=== PATIENT | male | born 1980 | race Hispanic/Latino ===

== ENCOUNTER → 2017-10-04 | Outpatient (CLI) | payer OTHER ==
[~2017-10-04] MED LIST: AMOXICILLIN875 MG PO; DIATRIZOATE MEGL/DIATRIZOA SOD 30 ML BTL PO ONE; IOPAMIDOL 370 MG/ML 200 ML INFUS..BTL INJ ONE; LISINOPRIL PO; SODIUM CHLORIDE 0.9% 50ML 50 ML ONE; TOPIRAMATE PO; VITAMIN D5000 UNIT PO
[2017-10-04 08:26] LABS: BLOOD UREA NITROGEN 12 mg/dL (7-26); BUN/CREATININE RATIO 13 (6-25); CREATININE, SERUM 0.92 mg/dL (0.72-1.25); EST GLOMERULAR FILTRATION RATE > 60 ML/MIN (60-)
--- NOTE | 2017-10-04 09:21 | Diagnostic Imaging Report ---
EXAM: CT ABDOMEN AND PELVIS with IV CONTRAST DATE: 10/04/2017 8:35 AM INDICATION: Ventral hernia COMPARISON: None TECHNIQUE: The abdomen and pelvis were scanned using a multidetector helical scanner. Coronal and sagittal reformations were obtained. Routine protocol performed. IV Contrast: 100 cc of Isovue-370 Oral Contrast: Gastrografin intermixed with water Radiation Dose: Total DLP 877.74 mGy*cm Estimated effective dose: DLP x 0.015 x size factor FINDINGS: LOWER THORAX: No consolidations LIVER: No masses BILIARY: The gallbladder is unremarkable. No ductal dilatation. SPLEEN: No masses PANCREAS: No masses ADRENALS: There is a tiny fat-containing left adrenal nodule measuring 7 mm compatible with a myelolipoma. KIDNEYS: Symmetric perfusion. No enhancing masses. No hydronephrosis. GI TRACT: No distention, wall thickening or evidence of obstruction. The appendix is normal. 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 PERITONEUM/RETROPERITONEUM: No free air or fluid LYMPH NODES: No lymphadenopathy REPRODUCTIVE ORGANS: Unremarkable BLADDER: Unremarkable SOFT TISSUES: There is a small supraumbilical ventral abdominal wall hernia measuring 2.3 x 1.6 x 1.6 cm. No inflammation or GI contents within the fat-containing hernia. Small fat-containing umbilical hernia. BONES: No suspicious bone lesions. IMPRESSION: 1. Small supraumbilical ventral abdominal hernia. 2. Benign-appearing fat-containing left adrenal nodule. Signed by: Dr. Mauricio Kumar DO on 10/04/2017 9:18 AM
== END ==
LOC: CT 07:11
PROVIDERS: ATTEND Surgery
DX: K43.9 Ventral hernia without obstruction or gangrene (principal)
CPT/HCPCS: 36415; 74177; 82565; 84520; Q9967

== ENCOUNTER 2017-10-13 09:12 | Observation (INO) | payer OTHER ==
[2017-10-12 12:40] LABS: BASOPHILS # (AUTO) 0.1 (0.0-0.1); BASOPHILS % 0.4 % (0.0-1.0); EOSINOPHILS # (AUTO) 0.3 (0.0-0.4); EOSINOPHILS % 2.5 % (0.0-6.0); HEMATOCRIT 44.8 % (38.2-49.6); HEMOGLOBIN 15.8 g/dL (14.0-18.0); LYMPHOCYTES # (AUTO) 3.6 (1.0-3.2); LYMPHOCYTES % 30.8 % (18.0-39.1); MEAN CORPUSCULAR HEMOGLOBIN 31.8 pg (28-32); MEAN CORPUSCULAR HGB CONC 35.3 g/dL (31-35); MEAN CORPUSCULAR VOLUME 90.1 fL (81-99); MONOCYTES # (AUTO) 0.7 (0.2-0.8); MONOCYTES % 6.3 % (4.4-11.3); NEUTROPHILS % 59.5 % (38.7-80.0); PLATELET COUNT 325 x10e3/uL (140-360); RED BLOOD COUNT 4.97 x10e6/uL (4.3-5.7); RED CELL DISTRIBUTION WIDTH 12.4 % (11.7-14.4)
[2017-10-12 12:58] LABS: ANION GAP 12.7 mmol/L (8-16); BLOOD UREA NITROGEN 10 mg/dL (7-26); BUN/CREATININE RATIO 12 (6-25); CALCIUM 9.3 mg/dL (8.4-10.2); CARBON DIOXIDE 25 mmol/L (22-29); CHLORIDE 103 mmol/L (98-107); CREATININE, SERUM 0.84 mg/dL (0.72-1.25); EST GLOMERULAR FILTRATION RATE > 60 ML/MIN (60-); GLUCOSE 145 mg/dL (74-118); POTASSIUM 3.7 mmol/L (3.5-5.1); SODIUM 137 mmol/L (136-145)
[~2017-10-13] VITALS: Ht 172.7 cm; Wt 105.0 kg
[2017-10-13] MEDS: DEXTROSE 5%/LACTATED RINGERS 1,000 ML IV SCH (00:30)
[~2017-10-13 09:12] MED LIST changes: -DIATRIZOATE MEGL/DIATRIZOA SOD 30 ML BTL PO ONE; -IOPAMIDOL 370 MG/ML 200 ML INFUS..BTL INJ ONE; -SODIUM CHLORIDE 0.9% 50ML 50 ML ONE
[2017-10-13] MEDS ORDERED: HYDROCHLOROTHIA25 MG PO (09:20)
[2017-10-13] MEDS ORDERED: BACITRACIN 50,000 UNIT VIAL ONE (14:45)
[2017-10-13] MEDS ORDERED: CEFAZOLIN SOD 1 GM VIAL ONE (15:02)
[2017-10-13] MEDS ORDERED: PROPOFOL IV EMULSION 10 MG/ML 20 ML VIAL ONE (15:02)
[2017-10-13] MEDS ORDERED: DESFLURANE 240 ML BTL INH ONE (15:02)
[2017-10-13] MEDS ORDERED: LABETALOL HCL IV 5 MG/ML 20ML MDV ONE (15:02)
[2017-10-13] MEDS ORDERED: LIDOCAINE HCL 2% LOCAL INJ 5 ML SDV VIAL INJ ONE (15:02)
[2017-10-13] MEDS ORDERED: DEXAMETHASONE SOD PHOS INJ 4 MG/ML VIAL ONE (15:02)
[2017-10-13] MEDS ORDERED: ONDANSETRON HCL INJ 2 MG/ML VIAL ONE ×2 (15:02→16:53)
[2017-10-13] MEDS ORDERED: ROCURONIUM BROMIDE 10 MG/ML 5ML VIAL ONE (15:02)
[2017-10-13] MEDS ORDERED: LIDOCAINE 1% W/EPINEPHRINE 20 ML VIAL ONE (15:33)
[2017-10-13] MEDS ORDERED: NEOSTIGMINE 1 MG/ML 10ML VIAL ONE (15:59)
[2017-10-13] MEDS ORDERED: PROMETHAZINE HCL (IM) 25 MG/ML VIAL IV PRN (16:15)
[2017-10-13] MEDS ORDERED: METOCLOPRAMIDE HCL 10 MG/2ML VIAL ONE (16:53)
[2017-10-13] MEDS ORDERED: PROMETHAZINE HCL (IM) 25 MG/ML VIAL ONE (17:19)
[2017-10-13 17:30] VITALS: BP 123/76
[2017-10-13] MEDS: CEFAZOLIN SOD 1 GM VIAL IV SCH (17:40)
[2017-10-13 17:54] VITALS: BP 123/76
[2017-10-13] MEDS ORDERED: CEFAZOLIN SOD 1 GM/NS 50ML 50 ML IV SCH (18:00)
[2017-10-13 18:09] VITALS: BP 123/76
[2017-10-13] MEDS ORDERED: MIDAZOLAM HCL 2 MG/2 ML VIAL ONE (18:39)
[2017-10-13] MEDS ORDERED: MORPHINE SULFATE INJ 10 MG/ML ONE (18:39)
[2017-10-13] MEDS ORDERED: FENTANYL CITRATE/PF 100MCG/2 ML INJ ONE (18:39)
[2017-10-13 20:00] VITALS: BP_SYST 135; BP_SYST 164; BP_DIAS 69; BP_DIAS 83
[2017-10-13] MEDS: HYDROMORPHONE 2MG/ML INJ IV PRN (22:16)
[2017-10-14] VITALS (7 sets, daily range): BP systolic 106–122; BP diastolic 57–72
[2017-10-14] MEDS: CEFAZOLIN SOD 1 GM VIAL IV SCH ×4 (00:30→17:20)
[2017-10-14] MEDS: DEXTROSE 5%/LACTATED RINGERS 1,000 ML IV SCH ×3 (02:10→22:33)
[2017-10-14] MEDS: HYDROMORPHONE 2MG/ML INJ IV PRN ×4 (04:30→19:39)
[2017-10-14] MEDS: LISINOPRIL 10 MG TAB PO SCH (08:42)
[2017-10-14] MEDS: HYDROCODONE/APAP 7.5MG-325MG 1 EA TAB PO PRN ×2 (08:59→17:20)
[2017-10-14] MEDS ORDERED: LISINOPRIL 10 MG PO SCH (09:00)
--- NOTE | 2017-10-14 09:03 | Operative Report ---
DATE OF PROCEDURE: October 13, 2017 PREOPERATIVE DIAGNOSIS: Ventral hernia. POSTOPERATIVE DIAGNOSIS: Ventral hernia. PROCEDURE PERFORMED: Repair of ventral and umbilical hernia. ANESTHESIA: General endotracheal. ESTIMATED BLOOD LOSS: Minimal. DRAINS: Two 10 mm flat Paras-Snow drains. COMPLICATIONS: None. INDICATIONS AND FINDINGS: The patient is a 37-year-old obese male admitted for repair of symptomatic ventral hernia. The patient had been complaining of a painful bulge of the abdomen developed several weeks prior to admission after picking up heavy objects at work and patient had an ultrasound and CAT scan that revealed 2 hernias, one in the area of the umbilicus and the other one superior to the umbilicus in the supraumbilical area along the midline with herniation of properitoneal fat. INTRAOPERATIVE FINDINGS: Ventral hernia and then midline supraumbilical hernia, both with herniation of properitoneal fat. The 2 defects were connected and then the fascia closed and then an UltraPro flat mesh 6 x 6 was placed to cover the defect. DESCRIPTION OF PROCEDURE: With the patient on the operative table in the supine position after administration of general endotracheal anesthesia, he was prepped and draped for repair of a ventral hernia. An incision was made superior to the umbilicus for about 5 inches and curved to the right of the umbilicus and the dissection was carried down through the skin and subcutaneous tissue until the hernias were identified. The hernias were interconnected and then we excised the attenuated fat in the supraumbilical region and then we closed the fascia with a series of interrupted 0 Ethibond sutures. After this was done, we placed a flat UltraPro hernia system 6 x 6 over the hernia and secured to the fascia with a combination of 2-0 Ethibond sutures and the fascial tacker stapler. The mesh laid flatly and nicely. We then infiltrated the fascia with 0.25% Marcaine without epinephrine because it was not available and copiously irrigated the wound with bacitracin containing solution and then closed the wound in 2 layers using 0 chromic for the deeper subcutaneous tissue as well as the more superficial layer. The subcuticular plane was closed with2-0 Vicryl and the skin was closed using a combination of 0 and 2-0 silk and the remaining part of skin was closed with harjinder. A local block was given with 0.25% Xylocaine to the wound. Two 10 mm flat Paras-Snow drains were placed in the operative field and brought out through a stab wound inferior to the incision and secured there with 2-0 silk. Sterile dressing was applied. Patient tolerated the procedure well and was taken to recovery room in stable condition. Job#: [id number] SAL
[2017-10-14] MEDS: ONDANSETRON HCL INJ 2 MG/ML VIAL IV PRN (10:21)
[2017-10-15] VITALS (8 sets, daily range): BP systolic 118–134; BP diastolic 58–80
[2017-10-15] MEDS: CEFAZOLIN SOD 1 GM VIAL IV SCH ×5 (00:19→23:44)
[2017-10-15] MEDS: HYDROMORPHONE 2MG/ML INJ IV PRN ×4 (02:33→18:52)
[2017-10-15] MEDS: DEXTROSE 5%/LACTATED RINGERS 1,000 ML IV SCH (08:11)
[2017-10-15] MEDS: ONDANSETRON HCL INJ 2 MG/ML VIAL IV PRN (08:12)
[2017-10-15] MEDS: LISINOPRIL 10 MG TAB PO SCH (08:12)
[2017-10-15] MEDS: HYDROCODONE/APAP 7.5MG-325MG 1 EA TAB PO PRN (12:14)
[2017-10-16] VITALS: BP 119/69
[2017-10-16] MEDS: HYDROMORPHONE 2MG/ML INJ IV PRN ×2 (01:26→10:14)
[2017-10-16 04:00] VITALS: BP 118/70
[2017-10-16] MEDS: CEFAZOLIN SOD 1 GM VIAL IV SCH (05:04)
[2017-10-16] MEDS: HYDROCODONE/APAP 7.5MG-325MG 1 EA TAB PO PRN (07:41)
[2017-10-16 07:45] VITALS: BP 123/69
[2017-10-16 08:27] VITALS: BP 123/69
[2017-10-16] MEDS: LISINOPRIL 10 MG TAB PO SCH (09:09)
--- NOTE | 2017-10-16 10:31 | Discharge Summary ---
DISCHARGE DIAGNOSES 1. Ventral hernias. 2. Obesity. PROCEDURES PERFORMED UPON ADMISSION, 10/13/2017: Repair of ventral hernias with mesh, surgeon Josue Fairchild MD. HISTORY OF PRESENT ILLNESS AND HOSPITAL COURSE: The patient is a 37-year-old male admitted for repair of symptomatic ventral hernia. The patient underwent on 10/13/2017, repair of ventral hernias with mesh. The patient was admitted for postop pain control. He required parenteral narcotics until the day of discharge. He was discharged in afebrile and stable condition on 10/16/2017. He had a couple of Paras-Snow drains that were removed the day of discharge as they were not draining significantly. The wound was clean and healing well. Discharge medications were Lortab 7.5 one p.o. q.4-6 h. p.r.n. for pain. He was given instructions not to do any work. He can shower in 48 hours. He will follow up in my office a week following discharge. INA FAIRCHILD MD Job#: [id number]
== END 2017-10-16 11:15 | disposition home or self-care (01) ==
LOC: OR 09:12 → IMCU 16:14
PROVIDERS: ADMIT Surgery; ATTEND Surgery
DX: K43.9 Ventral hernia without obstruction or gangrene (principal); K42.9 Umbilical hernia without obstruction or gangrene; E66.9 Obesity, unspecified; Z68.35 Body mass index [BMI] 35.0-35.9, adult
CPT/HCPCS: 36415 ×2; 49560; 49568; 80048; 82948; 85025; 93005; 96361 ×2; C1781; G0378 ×4; J0690 ×4; J1100; J1170 ×4; J2001; J2250; J2270; J2405 ×3; J2550; J2710; J2765; J3490; J7120 ×2